=== PATIENT | female | born 1950 | race Caucasian/White ===

== ENCOUNTER 2018-02-02 19:32 | Emergency (ER) | payer OTHER ==
[2018-02-02 19:49] VITALS: BP 129/70
--- NOTE | 2018-02-02 22:47 | XRay Report ---
FINAL REPORT EXAM: XR SHOULDER 2+V RT HISTORY: right shoulder injury TECHNIQUE: Right shoulder three views PRIORS: None. FINDINGS: There is a bony projection seen at the inferior aspect of the glenoid suspicious for Bankart fracture. The humeral head appears intact. There is no acute dislocation identified. AC joint is intact. Adjacent bony and soft tissue structures are unremarkable. IMPRESSION: Findings suspicious for Bankart lesion at the inferior aspect of the glenoid. This could be an acute or chronic finding. If continued clinical concern followup MRI suggested for further evaluation
[2018-02-03] MEDS ORDERED: TYLENOL #3 PO ONE (01:43)
--- NOTE | 2018-02-03 01:45 | Emergency Department Report ---
ED Upper Extremity Inj HPI - General Chief Complaint: Shoulder Injury Stated Complaint: R SHOULDER DISLOCATION Time Seen by Provider: 02/03/18 01:38 Source: patient, family Mode of arrival: Ambulatory Limitations: No Limitations - History of Present Illness Initial Comments: Patient presents for right shoulder pain status post ground-level fall today in her kitchen went to see her chiropractor advised that she had a right shoulder dislocation shoulder reduced by chiropractor presents today for x-rays plan is for 10 exacerbated with movement no numbness no tingling no deformity mild bruising and swelling Complaint: Injury to:: right Onset/Timin -: hour(s) Other Extremity Injury: Shoulder: Right Handedness: right Place: home Severity scale (0 -10): 4 Improves With: rest Worsens With: movement of extremity Context: fall Associated Symptoms: heard/felt popping sensat, other (pain with movement ) Treatments Prior to Arrival: other (chiropractor reduced shoulder dislocation ) - Related Data Previous Rx's Medication Instructions Recorded Last Taken Type Acetaminophen/Codeine [Tylenol 1 tab PO Q8H PRN #9 tab 02/03/18 Unknown Rx /Codeine # 3 tab] Allergies Allergy/AdvReac Type Severity Reaction Status Date / Time No Known Allergies Allergy Unverified 02/02/18 20:39 ED Review of Systems ROS: Stated complaint: R SHOULDER DISLOCATION Other details as noted in HPI Constitutional: denies: chills, fever Eyes: denies: eye pain, eye discharge, vision change ENT: denies: ear pain, throat pain Respiratory: denies: cough, shortness of breath, wheezing Cardiovascular: denies: chest pain, palpitations Endocrine: no symptoms reported Gastrointestinal: denies: abdominal pain, nausea, diarrhea Genitourinary: denies: urgency, dysuria, discharge Musculoskeletal: arthralgia, myalgia. denies: back pain, joint swelling Skin: denies: rash, lesions Neurological: denies: headache, weakness, paresthesias Psychiatric: denies: anxiety, depression Hematological/Lymphatic: denies: easy bleeding, easy bruising ED Past Medical Hx - Past Medical History Previous Medical History?: No - Surgical History Past Surgical History?: No - Social History Smoking Status: Never Smoker Substance Use Type: None - Medications Home Medications: Home Medications Medication Instructions Recorded Confirmed Last Taken Type Acetaminophen/Codeine [Tylenol 1 tab PO Q8H PRN #9 tab 02/03/18 Unknown Rx /Codeine # 3 tab] ED Physical Exam - General Limitations: No Limitations General appearance: alert, in no apparent distress - Head Head exam: Present: atraumatic, normocephalic - Eye Eye exam: Present: normal appearance, PERRL, EOMI Pupils: Present: normal accommodation - ENT ENT exam: Present: mucous membranes moist - Neck Neck exam: Present: normal inspection, full ROM. Absent: tenderness, lymphadenopathy, thyromegaly - Respiratory Respiratory exam: Present: normal lung sounds bilaterally. Absent: respiratory distress, wheezes, stridor, chest wall tenderness - Cardiovascular Cardiovascular Exam: Present: regular rate, normal rhythm, normal heart sounds. Absent: systolic murmur, diastolic murmur, rubs, gallop - GI/Abdominal GI/Abdominal exam: Present: soft, normal bowel sounds. Absent: distended, tenderness, guarding, rebound, rigid, organomegaly, mass, bruit, pulsatile mass - Rectal Rectal exam: Present: deferred - Extremities Exam Extremities exam: Present: tenderness (right lateral shoulder), normal capillary refill, pedal edema. Absent: joint swelling, calf tenderness - Expanded Upper Extremity Exam Right Shoulder Exam: Present: tenderness (right lateral shoulder pain ), swelling, ecchymosis, tenderness over AC joint. Absent: abrasion, laceration, deformity, crepidus, dislocation, erythema Upper Arm exam: Present: normal inspection, tenderness, ecchymosis. Absent: swelling, abrasion, laceration, deformity, crepidus, dislocation, erythema Elbow exam: Present: normal inspection, full ROM Forearm Wrist exam: Present: normal inspection, full ROM Hand Wrist exam: Present: normal inspection, full ROM. Absent: tenderness Neuro motor exam: Present: wrist extension intact, thumb opposition intact, thumb IP flexion intact, thumb adduction intact, fingers 2-5 abduction intact Neurosensory exam: Present: 2-point discrimination, radial nerve intact, ulnar nerve intact, median nerve intact Vascular: Present: normal capillary refill, radial pulse, brachial pulse, ulnar pulse. Absent: vascular compromise, Pallo, pulse deficit radial art, pulse deficit ulnar art, pulse deficit brachial art - Back Exam Back exam: Present: normal inspection, full ROM. Absent: tenderness, CVA tenderness (R), CVA tenderness (L), muscle spasm, paraspinal tenderness, vertebral tenderness, rash noted - Neurological Exam Neurological exam: Present: alert, oriented X3, CN II-XII intact, normal gait, reflexes normal. Absent: motor sensory deficit - Psychiatric Psychiatric exam: Present: normal affect, normal mood - Skin Skin exam: Present: warm, dry, intact, normal color. Absent: rash ED Course Vital Signs 02/02/18 19:42 Temperature 100.0 F H Pulse Rate 71 Respiratory 18 Rate Blood Pressure 129/70 O2 Sat by Pulse 97 Oximetry ED Medical Decision Making - Radiology Data Radiology results: report reviewed, image reviewed right Bankart lesion with fractured, - Medical Decision Making pain improved, plan Sling and swath, follow up with ortho in 1-2 days, family and patient verbalized agreement and understanding of same. 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 Critical care attestation.: If time is entered above; I have spent that time in minutes in the direct care of this critically ill patient, excluding procedure time. ED Disposition Clinical Impression: Bankart lesion of right shoulder Qualifiers: Encounter type: initial encounter Qualified Code(s): S43.491A - Other sprain of right shoulder joint, initial encounter Disposition: - TO HOME OR SELFCARE Is pt being admited?: No Does the pt Need Aspirin: No Condition: Good Instructions: Shoulder Sprain (ED), Scapular Fracture (ED) Prescriptions: Acetaminophen/Codeine [Tylenol /Codeine # 3 tab] 1 tab PO Q8H PRN #9 tab PRN Reason: Pain , Severe (7-10) Referrals: SID BIRMINGHAM MD [Staff Physician] - 3-5 Days Forms: Work/School Release Form(ED) Time of Disposition: 01:56
== END 2018-02-03 02:00 | disposition home or self-care (01) ==
LOC: ED 19:32
DX: S43.491A Other sprain of right shoulder joint, initial encounter (principal); M75.91 Shoulder lesion, unspecified, right shoulder; W18.30XA Fall on same level, unspecified, initial encounter; Y93.89 Activity, other specified; Y92.090 Kitchen in other non-institutional residence as the place of occurrence of the external cause; Y99.8 Other external cause status
CPT/HCPCS: 99283